=== PATIENT | female | born 1945 | race Caucasian/White ===

== ENCOUNTER 2021-04-01 10:44 | Emergency (ER) | payer MEDICARE, BC ==
[2021-04-01] MEDS ORDERED: ACETAMINOPHEN 325 MG TABLET PO STA (10:47)
--- NOTE | 2021-04-01 11:54 | ED Physician Documentation ---
PD HPI UPPER EXT INJURY - Stated complaint Stated Complaint: WRIST PX/FALL - Chief complaint Chief Complaint: Ext Problem - History obtained from History obtained from: Patient (Trip and fall 2 days ago landing on outstretched wrists. Declines pain medication. Both wrists are hurt but the right worse than the left. No other injuries.) Review of Systems Constitutional: reports: Reviewed and negative Eyes: reports: Reviewed and negative Ears: reports: Reviewed and negative Nose: reports: Reviewed and negative Throat: reports: Reviewed and negative PD PAST MEDICAL HISTORY - Allergies Allergies/Adverse Reactions: Allergies Allergy/AdvReac Type Severity Reaction Status Date / Time Penicillins Allergy Rash Verified 04/01/21 10:48 Sulfa (Sulfonamide Allergy Rash Verified 04/01/21 10:48 Antibiotics) PD ED PE NORMAL - Vitals Vital signs reviewed: Yes - General General: Alert and oriented X 3, No acute distress - Extremities Extremities: Other (Significant swelling and ecchymosis of the right wrist and tender over the distal ulna and radius. No snuffbox tenderness. Limited range of motion due to pain. Left wrist is not swollen, minimal tenderness over the dorsal wrist, no snuffbox tenderness.) - Neuro Neuro: Alert and oriented X 3, Normal speech - Psych Psych: Normal mood, Normal affect Results - Vitals Vitals: Vital Signs - 24 hr 04/01/21 10:48 Temperature 36.5 C Heart Rate 80 Respiratory 16 Rate Blood Pressure 120/71 O2 Saturation 98 Oxygen O2 Source Room air PD MEDICAL DECISION MAKING - ED course ED course: 4 view x-ray of both wrists interpreted contemporaneously by me, no obvious fracture or dislocation of either wrist. Placed in a wrist splint for the right wrist that one seems more injured compared to the left. She declined prescription pain medication. Diagnosis: 1. Bilateral wrist sprains 2. Ground-level fall Departure - Departure Disposition: 01 Home, Self Care Condition: Good Record reviewed to determine appropriate education?: Yes Instructions: ED Sprain Wrist, ED Splint Care Velcro Comments: You can wear the Velcro splint as needed for comfort, it can come off for bathing and sleeping or anytime you do not need it particularly. If not improving over the next week follow-up with your doctor for consideration for repeat x-rays.
--- NOTE | 2021-04-01 12:19 | XRAY Report ---
PROCEDURE: Wrist 4 View BILAT INDICATIONS: wrist injurues TECHNIQUE: 4 views of the wrist were acquired. COMPARISON: None FINDINGS: Bones: No fractures or dislocations. No suspicious bony lesions. Prominent degenerative changes ar e present bilaterally. Scaphoid view: No visualized fracture. Soft tissues: No suspicious soft tissue calcifications. IMPRESSION: No visualized acute fracture or dislocation. However, occult injury cannot be excluded. Recommend sandy rt interval imaging follow-up in 7-10 days as clinically indicated for additional evaluation. Reviewed by: Aishwarya Rashid MD on 04/01/2021 12:18 PM PDT Approved by: Aishwarya Rashid MD on 04/01/2021 12:18 PM PDT Station ID: [id number]
[2021-04-01 12:56] VITALS: BP 125/69
== END 2021-04-01 13:00 | disposition home or self-care (01) ==
LOC: ED 10:44
DX: S63.502A Unspecified sprain of left wrist, initial encounter (principal); S63.501A Unspecified sprain of right wrist, initial encounter; W18.30XA Fall on same level, unspecified, initial encounter
CPT/HCPCS: 99282; 99283